=== PATIENT | female | born 1955 | race African-American/Black ===

== ENCOUNTER 2018-11-07 23:27 | Emergency (ER) | payer OTHER ==
[~2018-11-07] VITALS: Ht 170.2 cm; Wt 68.0 kg
[2018-11-07 23:42] VITALS: Ht 170.2 cm; Wt 68.0 kg
[2018-11-08 02:10] VITALS: BP 142/81
== END 2018-11-08 02:10 | disposition home or self-care (01) ==
LOC: ED 23:27
DX: K21.9 Gastro-esophageal reflux disease without esophagitis (principal)
CPT/HCPCS: J2765; Q0162

== ENCOUNTER 2019-07-14 00:39 | Inpatient (IN) | payer OTHER ==
[~2019-07-14] VITALS: Ht 170.2 cm; Wt 72.6 kg
[2019-07-14 00:46] VITALS: Ht 170.2 cm; Wt 72.6 kg
[2019-07-14 02:23] LABS: PLATELET COUNT 608 x10^3mcL (130-400); RED CELL DISTRIBUTION WIDTH 15.6 % (11.5-14.5)
[2019-07-14 02:40] LABS: BAND NEUTROPHIL 0 % (0-10); BASOPHIL 0 % (0-2); MONOCYTE 1 % (0-7); PLATELET MORPHOLOGY PLATELETS INCREASED; SEGMENTED NEUTROPHILS 88 % (37-75); rbc morphology (normal/abnorm) ABNORMAL (NORMAL)
[2019-07-14 02:54] LABS: CALCIUM 7.9 mg/dL (8.5-10.1); CARBON DIOXIDE 25.5 mmol/L (21-32); CHLORIDE SERUM 100 mmol/L (98-107); CREATININE SERUM 0.6 mg/dL (0.6-1.0); GFR1 > 60 mL/min; GLUCOSE SERUM 123 mg/dL (74-106); POTASSIUM SERUM 3.3 mmol/L (3.5-5.1); SODIUM SERUM 135 mmol/L (136-145)
[2019-07-14 02:58] LABS: ALBUMIN 2.3 g/dL (3.4-5.0); ALKALINE PHOSPHATASE 76 U/L (46-116); ALT/SGPT 26 U/L (14-59); AST/SGOT 26 U/L (15-37); BILIRUBIN TOTAL 0.4 mg/dL (0.20-1.00); LIPASE 47 IU/L (73-393)
[2019-07-14 06:19] VITALS: BP 127/63
[2019-07-14 07:48] VITALS: BP 115/72
[2019-07-14 11:59] VITALS: BP 127/85
[2019-07-14 16:14] VITALS: BP 105/62
[2019-07-14 18:14] LABS: microscopic required? NO
[2019-07-14 18:18] LABS: urine erythrocyte NEGATIVE (NEGATIVE)
[2019-07-14 20:29] VITALS: BP 104/64
[2019-07-15 05:18] VITALS: BP 102/61
[2019-07-15 06:51] LABS: ALKALINE PHOSPHATASE 77 U/L (46-116); ALT/SGPT 21 U/L (14-59); AST/SGOT 17 U/L (15-37); BILIRUBIN TOTAL 0.5 mg/dL (0.20-1.00); CALCIUM 8.5 mg/dL (8.5-10.1); CHLORIDE SERUM 100 mmol/L (98-107); CREATININE SERUM 0.7 mg/dL (0.6-1.0); GFR1 > 60 mL/min; GLUCOSE SERUM 129 mg/dL (74-106); POTASSIUM SERUM 3.5 mmol/L (3.5-5.1); SODIUM SERUM 133 mmol/L (136-145); TOTAL PROTEIN, SERUM 6.5 g/dL (6.4-8.2)
[2019-07-15 06:56] LABS: ALBUMIN 1.9 g/dL (3.4-5.0)
[2019-07-15 06:57] LABS: IRON 14 ug/dL (50-170); TOTAL IRON BINDING CAPACITY 216 ug/dL (250-450)
[2019-07-15 07:46] LABS: RED CELL DISTRIBUTION WIDTH 16.3 % (11.5-14.5)
[2019-07-15 07:47] LABS: PLATELET COUNT 672 x10^3mcL (130-400)
[2019-07-15 08:07] VITALS: BP 111/62
[2019-07-15 10:36] LABS: BAND NEUTROPHIL 3 % (0-10); BASOPHIL 0 % (0-2); MONOCYTE 5 % (0-7); SEGMENTED NEUTROPHILS 82 % (37-75)
[2019-07-15 10:37] LABS: PLATELET MORPHOLOGY PLATELETS INCREASED; rbc morphology (normal/abnorm) ABNORMAL (NORMAL)
[2019-07-15 12:26] VITALS: BP 108/71
[2019-07-15 16:41] VITALS: BP 121/71
[2019-07-15 21:23] VITALS: BP 118/69
[2019-07-16 05:46] VITALS: BP 120/81
[2019-07-16 06:52] LABS: ALKALINE PHOSPHATASE 80 U/L (46-116); ALT/SGPT 16 U/L (14-59); BILIRUBIN TOTAL 0.27 mg/dL (0.20-1.00); CALCIUM 8.3 mg/dL (8.5-10.1); CARBON DIOXIDE 27.2 mmol/L (21-32); CHLORIDE SERUM 103 mmol/L (98-107); CREATININE SERUM 0.5 mg/dL (0.6-1.0); GFR1 > 60 mL/min; GLUCOSE SERUM 128 mg/dL (74-106); POTASSIUM SERUM 3.5 mmol/L (3.5-5.1); SODIUM SERUM 134 mmol/L (136-145); TOTAL PROTEIN, SERUM 6.2 g/dL (6.4-8.2)
[2019-07-16 07:07] LABS: AST/SGOT 15 U/L (15-37)
[2019-07-16 07:08] LABS: ALBUMIN 1.7 g/dL (3.4-5.0)
[2019-07-16 07:42] VITALS: BP 130/79
[2019-07-16 08:55] LABS: RED CELL DISTRIBUTION WIDTH 16.5 % (11.5-14.5)
[2019-07-16 09:08] LABS: CA 125 16.5 U/mL (0.0-38.1)
[2019-07-16 09:55] LABS: BAND NEUTROPHIL 0 % (0-10); MONOCYTE 4 % (0-7); SEGMENTED NEUTROPHILS 96 % (37-75)
[2019-07-16 09:56] LABS: rbc morphology (normal/abnorm) ABNORMAL (NORMAL)
[2019-07-16 09:57] LABS: PLATELET MORPHOLOGY PLATELETS INCREASED
[2019-07-16 10:33] LABS: PLATELET COUNT 613 x10^3mcL (130-400)
[2019-07-16 12:13] VITALS: BP 109/70
[2019-07-16 17:27] VITALS: BP 118/63
[2019-07-16 21:02] VITALS: BP 112/59
[2019-07-17 05:41] VITALS: BP 123/72
[2019-07-17 07:46] LABS: ALBUMIN 1.8 g/dL (3.4-5.0); ALKALINE PHOSPHATASE 82 U/L (46-116); ALT/SGPT 16 U/L (14-59); AST/SGOT 13 U/L (15-37); BILIRUBIN TOTAL 0.24 mg/dL (0.20-1.00); CALCIUM 8.5 mg/dL (8.5-10.1); CARBON DIOXIDE 25.4 mmol/L (21-32); CHLORIDE SERUM 102 mmol/L (98-107); CREATININE SERUM 0.7 mg/dL (0.6-1.0); GFR1 > 60 mL/min; GLUCOSE SERUM 159 mg/dL (74-106); POTASSIUM SERUM 3.1 mmol/L (3.5-5.1); SODIUM SERUM 133 mmol/L (136-145); TOTAL PROTEIN, SERUM 6.4 g/dL (6.4-8.2)
[2019-07-17 08:42] VITALS: BP 134/56
[2019-07-17 10:10] LABS: RED CELL DISTRIBUTION WIDTH 16.7 % (11.5-14.5)
[2019-07-17 10:12] LABS: PLATELET COUNT 864 x10^3mcL (130-400)
[2019-07-17 10:57] LABS: BAND NEUTROPHIL 2 % (0-10); BASOPHIL 0 % (0-2); MONOCYTE 17 % (0-7); SEGMENTED NEUTROPHILS 74 % (37-75)
[2019-07-17 11:00] LABS: rbc morphology (normal/abnorm) ABNORMAL (NORMAL)
[2019-07-17 11:01] LABS: PLATELET MORPHOLOGY PLATELETS INCREASED
[2019-07-17 12:21] VITALS: BP 126/69
[2019-07-17 16:22] VITALS: BP 136/79
[2019-07-17 20:49] VITALS: BP 136/86
[2019-07-18 04:45] VITALS: BP 138/80
[2019-07-18 07:12] LABS: ALKALINE PHOSPHATASE 81 U/L (46-116); AST/SGOT 19 U/L (15-37); BILIRUBIN TOTAL 0.28 mg/dL (0.20-1.00); CALCIUM 8.2 mg/dL (8.5-10.1); CARBON DIOXIDE 27.2 mmol/L (21-32); CHLORIDE SERUM 100 mmol/L (98-107); CREATININE SERUM 0.5 mg/dL (0.6-1.0); GFR1 > 60 mL/min; GLUCOSE SERUM 133 mg/dL (74-106); POTASSIUM SERUM 3.1 mmol/L (3.5-5.1); SODIUM SERUM 133 mmol/L (136-145); TOTAL PROTEIN, SERUM 6.2 g/dL (6.4-8.2)
[2019-07-18 07:23] VITALS: BP 127/78
[2019-07-18 07:25] LABS: ALBUMIN 1.7 g/dL (3.4-5.0)
[2019-07-18 08:20] LABS: ALT/SGPT 15 U/L (14-59)
[2019-07-18 11:24] LABS: RED CELL DISTRIBUTION WIDTH 15.3 % (11.5-14.5)
[2019-07-18 11:25] LABS: PLATELET COUNT 784 x10^3mcL (130-400)
[2019-07-18 12:06] LABS: BAND NEUTROPHIL 1 % (0-10); BASOPHIL 0 % (0-2); MONOCYTE 5 % (0-7); SEGMENTED NEUTROPHILS 88 % (37-75)
[2019-07-18 12:07] LABS: PLATELET MORPHOLOGY PLATELETS INCREASED
[2019-07-18 12:08] LABS: rbc morphology (normal/abnorm) ABNORMAL (NORMAL)
[2019-07-18 12:42] VITALS: BP 124/74
[2019-07-18 17:47] VITALS: BP 140/87
[2019-07-18 20:46] VITALS: BP 144/89
[2019-07-19 04:45] VITALS: BP 134/84
[2019-07-19 06:59] LABS: ALKALINE PHOSPHATASE 75 U/L (46-116); ALT/SGPT 17 U/L (14-59); AST/SGOT 19 U/L (15-37); BILIRUBIN TOTAL 0.3 mg/dL (0.20-1.00); CALCIUM 8.3 mg/dL (8.5-10.1); CARBON DIOXIDE 30.6 mmol/L (21-32); CHLORIDE SERUM 98 mmol/L (98-107); CREATININE SERUM 0.5 mg/dL (0.6-1.0); GFR1 > 60 mL/min; GLUCOSE SERUM 137 mg/dL (74-106); POTASSIUM SERUM 3.4 mmol/L (3.5-5.1); SODIUM SERUM 136 mmol/L (136-145); TOTAL PROTEIN, SERUM 6.7 g/dL (6.4-8.2)
[2019-07-19 07:06] LABS: ALBUMIN 1.9 g/dL (3.4-5.0)
[2019-07-19 07:30] LABS: RED CELL DISTRIBUTION WIDTH 16.7 % (11.5-14.5)
[2019-07-19 07:32] LABS: PLATELET COUNT 820 x10^3mcL (130-400)
[2019-07-19 08:15] VITALS: BP 142/86
[2019-07-19 10:58] LABS: BAND NEUTROPHIL 1 % (0-10); BASOPHIL 0 % (0-2); MONOCYTE 5 % (0-7); SEGMENTED NEUTROPHILS 86 % (37-75); rbc morphology (normal/abnorm) ABNORMAL (NORMAL)
[2019-07-19 10:59] LABS: PLATELET MORPHOLOGY PLATELETS INCREASED
[2019-07-19 12:24] VITALS: BP 143/88
[2019-07-19 17:06] VITALS: BP 134/86
[2019-07-19 17:50] VITALS: BP 134/86
[2019-07-19 19:44] VITALS: BP 130/75
[2019-07-20 05:07] VITALS: BP 132/97
[2019-07-20 08:30] VITALS: BP 146/87
[2019-07-20 09:05] LABS: CALCIUM 7.8 mg/dL (8.5-10.1); CARBON DIOXIDE 27.6 mmol/L (21-32); CHLORIDE SERUM 100 mmol/L (98-107); CREATININE SERUM 0.5 mg/dL (0.6-1.0); GFR1 > 60 mL/min; GLUCOSE SERUM 138 mg/dL (74-106); SODIUM SERUM 134 mmol/L (136-145)
[2019-07-20 09:43] LABS: RED CELL DISTRIBUTION WIDTH 16.5 % (11.5-14.5)
[2019-07-20 13:42] LABS: BAND NEUTROPHIL 0 % (0-10); BASOPHIL 0 % (0-2); MONOCYTE 5 % (0-7); SEGMENTED NEUTROPHILS 86 % (37-75)
[2019-07-20 13:43] LABS: PLATELET MORPHOLOGY PLATELETS INCREASED; rbc morphology (normal/abnorm) ABNORMAL (NORMAL)
[2019-07-20 14:08] LABS: PLATELET COUNT 987 x10^3mcL (130-400)
[2019-07-20 16:09] VITALS: BP 97/66
[2019-07-20 20:30] VITALS: BP 104/66
[2019-07-21 05:42] VITALS: BP 96/61
[2019-07-21 06:42] LABS: RED CELL DISTRIBUTION WIDTH 17.2 % (11.5-14.5)
[2019-07-21 06:43] LABS: PLATELET COUNT 941 x10^3mcL (130-400)
[2019-07-21 08:19] LABS: CALCIUM 7.9 mg/dL (8.5-10.1); CARBON DIOXIDE 27.7 mmol/L (21-32); CREATININE SERUM 1.2 mg/dL (0.6-1.0); POTASSIUM SERUM 4.4 mmol/L (3.5-5.1)
[2019-07-21 08:42] VITALS: BP 98/65
[2019-07-21 09:15] LABS: BAND NEUTROPHIL 4 % (0-10); BASOPHIL 0 % (0-2); MONOCYTE 6 % (0-7); SEGMENTED NEUTROPHILS 82 % (37-75)
[2019-07-21 09:16] LABS: rbc morphology (normal/abnorm) ABNORMAL (NORMAL)
[2019-07-21 12:17] VITALS: BP 97/66
[2019-07-21 16:55] VITALS: BP 120/72
[2019-07-21 21:05] VITALS: BP 97/59
[2019-07-22] VITALS (10 sets, daily range): BP systolic 110–144; BP diastolic 68–92
[2019-07-22 07:01] LABS: CALCIUM 7.8 mg/dL (8.5-10.1); CARBON DIOXIDE 25.9 mmol/L (21-32); CREATININE SERUM 2.7 mg/dL (0.6-1.0); POTASSIUM SERUM 4.3 mmol/L (3.5-5.1)
[2019-07-22 08:15] LABS: RED CELL DISTRIBUTION WIDTH 17.2 % (11.5-14.5)
[2019-07-22 11:29] LABS: SEGMENTED NEUTROPHILS 83 % (37-75)
[2019-07-22 11:30] LABS: MONOCYTE 9 % (0-7); rbc morphology (normal/abnorm) ABNORMAL (NORMAL)
[2019-07-22 11:31] LABS: PLATELET COUNT 631 x10^3mcL (130-400); PLATELET MORPHOLOGY PLATELETS INCREASED
[2019-07-22 18:26] LABS: UA SPECIFIC GRAVITY 1.015 (1.005-1.035); microscopic required? YES; urine erythrocyte 1+ (NEGATIVE)
[2019-07-22 19:02] LABS: CREATININE UR 50.4 mg/dL
[2019-07-22 19:29] LABS: RED CELL DISTRIBUTION WIDTH 20.7 % (11.5-14.5)
[2019-07-22 19:30] LABS: PLATELET COUNT 681 x10^3mcL (130-400)
[2019-07-22 20:10] LABS: BAND NEUTROPHIL 1 % (0-10); BASOPHIL 0 % (0-2); MONOCYTE 6 % (0-7); SEGMENTED NEUTROPHILS 80 % (37-75)
[2019-07-22 20:12] LABS: PLATELET MORPHOLOGY PLATELETS INCREASED; rbc morphology (normal/abnorm) ABNORMAL (NORMAL)
== END 2019-07-22 20:30 | disposition short-term general hospital (02) | DRG 330 ==
LOC: ED 00:39 → MU 04:03
PROVIDERS: Anesthesiology; Emergency Medicine; Internal Medicine; Surgery; ADMIT Hospitalist
PROC: 0W9J30Z Drainage of Pelvic Cavity with Drainage Device, Percutaneous Approach (ICD-10-PCS; 2019-07-15)
PROC: 0DTF0ZZ Resection of Right Large Intestine, Open Approach (ICD-10-PCS; principal; 2019-07-20 09:30)
PROC: 30233N1 Transfusion of Nonautologous Red Blood Cells into Peripheral Vein, Percutaneous Approach (ICD-10-PCS; 2019-07-22)
DX: K61.1 Rectal abscess (principal); N17.9 Acute kidney failure, unspecified; K56.7 Ileus, unspecified; K91.89 Other postprocedural complications and disorders of digestive system; N73.9 Female pelvic inflammatory disease, unspecified; K59.00 Constipation, unspecified; D50.0 Iron deficiency anemia secondary to blood loss (chronic); D47.3 Essential (hemorrhagic) thrombocythemia; J45.909 Unspecified asthma, uncomplicated; Z68.25 Body mass index [BMI] 25.0-25.9, adult; Z88.0 Allergy status to penicillin; Y83.8 Other surgical procedures as the cause of abnormal reaction of the patient, or of later complication, without mention of misadventure at the time of the procedure; Y92.238 Other place in hospital as the place of occurrence of the external cause; Z79.899 Other long term (current) drug therapy
CPT/HCPCS: 49406; 86480; 87116; 87206; 97530-GP; A9577; G0378; J0744; J1170; J1650; J1940; J2001; J2185; J2250; J2270; J2405; J3010; J3480; J3490; J7030; J7040; J7042; J7050; P9016; P9047; Q0092; Q9966; Q9967